=== PATIENT | female | born 1980 | race African-American/Black ===

== ENCOUNTER 2021-06-28 15:49 | Emergency (ER) | payer OTHER ==
[~2021-06-28] VITALS: Ht 167.6 cm; Wt 72.6 kg
[2021-06-28 15:54] VITALS: BP 117/59
[2021-06-28] MEDS ORDERED: XANAX 0.5 MG0.5 MG (15:56)
== END 2021-06-28 16:42 | disposition left against medical advice (07) ==
LOC: M.ERS 15:49
DX: R55 Syncope and collapse (principal); Z53.21 Procedure and treatment not carried out due to patient leaving prior to being seen by health care provider